=== PATIENT | female | born 1985 | race Caucasian/White ===

== ENCOUNTER → 2019-06-08 16:20 | Outpatient (CLI) | payer OTHER, SELFPAY ==
[2019-06-08 17:10] LABS: Basophils % 0.4 % (0.1-2.0); Eosinophils % 0.4 % (0.1-12.0); Hematocrit 38.9 % (37.0-47.0); Hemoglobin 12.8 g/dL (12.2-16.2); Lymphocytes # 2.9 K/mm3 (0.7-4.5); Lymphocytes % 31.3 % (10-50); Mean Corpuscular Hemoglobin 28.6 pg (27.0-31.2); Mean Corpuscular Volume 86.6 fl (81-99); Mean Platelet Volume 8.3 fl (7.4-10.4); Monocytes # 0.4 K/mm3 (0.1-1.0); Monocytes % 4.7 % (1.7-9.3); Neutrophils # 5.8 K/mm3 (1.8-7.8); Neutrophils % 63.1 % (37.0-80.0); Platelet Count 292 K/mm3 (142-424); Red Blood Count 4.49 M/mm3 (4.20-5.40); Red Cell Distribution Width 12.4 % (11.5-17.5); White Blood Count 9.2 K/mm3 (4.8-10.8)
[2019-06-08 17:19] LABS: Alanine Aminotransferase 13 U/L (12-78); Albumin/Globulin Ratio 1.3 (1.1-1.8); Alkaline Phosphatase 55 U/L (46-116); Anion Gap 15.1 mEq/L (5-15); Aspartate Amino Transferase 7 U/L (15-37); Bilirubin,Total 0.4 mg/dL (0.2-1.0); Blood Urea Nitrogen 12 mg/dL (7-18); Calcium 8.8 mg/dL (8.5-10.1); Carbon Dioxide 24 mmol/L (21.0-32.0); Chloride 102 mmol/L (98-107); Chol/HDL Ratio 2.7 (1-3.5); Cholesterol 165 mg/dL (140-200); Creatinine,Serum 0.84 mg/dL (0.55-1.02); Estimated Glomerular Filt Rate 78 ml/min (>60); GFR (African American) 94 ML/MIN (>60); Globulin 3.2 gm/dl (1.3-3.2); Glucose 83 mg/dL (74-106); HDL Cholesterol 61 mg/dL (29-89); LDL Cholesterol 85 mg/dL (0-130); Potassium 4.1 mmoL/L (3.5-5.1); Sodium 137 mmol/L (136-145); T4 (Thyroxine) 9.1 ug/dl (4.7-13.3); Thyroid Stimulating Hormone 0.96 uIU/ml (0.358-3.740); Total Protein,Serum 7.2 gm/dL (6.4-8.2); Triglycerides 96 mg/dL (30-200); VLDL Cholesterol 19 mg/dL (0-40)
[2019-06-10 18:41] LABS: Vitamin D 25 Hydroxy 51.8 ng/mL (30.0-100.0)
== END ==
PROVIDERS: Visit Provider Nurse Practitioner Family
DX: L29.9 Pruritus, unspecified (principal)
CPT/HCPCS: 80053; 80061; 82652; 84436; 84443; 85025

== ENCOUNTER 2022-04-04 11:52 | Emergency (ER) | payer OTHER, SELFPAY ==
[2022-04-04 12:22] VITALS: BP 122/74; PULSE 76; RESP 19; TEMP 37.1; O2SAT 98; BMI 24.7
--- NOTE | 2022-04-04 12:43 | HMH.EDUTC ---
[facility] [place] Clinical Impression: Laryngitis, Bronchitis Pharyngitis Qualifiers: Pharyngitis/tonsillitis etiology: unspecified etiology Qualified Code(s): J02.9 - Acute pharyngitis, unspecified Disposition: Home, Self-Care Condition on Discharge: Good Instructions: DI for Acute Bronchitis Additional Instructions: Drink plenty of fluids. Take tylenol or ibuprofen for pain or fever. Take the medications as directed. Follow up with your regular doctor. GO TO THE ER FOR ANY WORSENING SYMPTOMS Throw your tooth brush away and get a new one. Don't start the oral steroids until tomorrow, since you had the shot here today. Prescriptions: Brompheniramine/Pseudoephed/Dm [Bromfed Dm Cough Syrup] 5 ml PO Q6HP PRN #240 ml PRN Reason: Cough Transmission Status: Received by [id number] methylPREDNISolone [Medrol] 4 mg PO DIRECTED 6 Days #21 packet Transmission Status: Received by [id number] Azithromycin [Z-Beau 250mg Tab*] 250 mg PO UD DOSE PK #6 tab Transmission Status: Received by [id number] Referrals: Franco Bateman MD [Primary Care Provider] - Time of Disposition: 13:07 Medical Decision Making - Medical Records Medical records reviewed: No: I reviewed the patient's medical records. - Tony Inquiry Pt receiving controlled substance: No Vital Signs: 04/04/22 12:22 04/04/22 13:09 Temperature 98.8 F 98.8 F Temperature Source Oral Pulse Rate 76 Pulse Rate [Left Radial] 76 Respiratory Rate 19 19 Blood Pressure 122/76 Blood Pressure [Right Arm] 122/74 Blood Pressure Mean [Right Arm] 90 02 Sat by Pulse Oximetry 98 - Lab Data Lab results reviewed: Yes: I reviewed the patient's lab results. Orders (Tests/Meds): ED MEDICATIONS Discontinued Medications Generic Name Dose Route Start Last Admin Trade Name Freq PRN Reason Stop Dose Admin Dexamethasone Sodium Phosphate 8 mg 04/04/22 12:54 04/04/22 13:03 Dexamethasone 4mg/Ml 1ml Vial IM 04/04/22 12:55 8 mg ONCE ONE Administration [facility] [place] HPI - General Stated complaint: hoarseness, cough Time Seen by Provider: 04/04/22 12:43 Mode of Arrival: Ambulatory Source of Information: Patient Limitations: No Limitations Description of Symptoms (Recalled from Triage Doc. by RN): pt here with c/o laryngitis, cough, headache HEENT Symptoms (Recalled from RN notes): Yes Resp Symptoms (Recalled from RN notes): Yes Skin Symptoms (Recalled from RN notes): No MS Symptoms (Recalled from RN notes): No Functional Status (Recalled from RN notes): wnl - History of Present Illness Provider Complaint: She c/o sore throat, hoarse voice, chilling and feeling bad for the past 2 days. She denies any fever or chills. - Related Data Home Medications Medication Instructions Recorded Confirmed cetirizine 10 mg tablet 10 mg PO DAILY 10/28/20 11/03/21 Previous Rx's Medication Instructions Recorded norgestimate 0.18 mg/0.215 mg/0.25 1 tab PO Q24H #84 tab 11/03/21 mg-ethinyl estradiol 25 mcg tablet Azithromycin [Z-Beau 250mg Tab*] 250 mg PO UD DOSE PK #6 tab 04/04/22 Brompheniramine/Pseudoephed/Dm 5 ml PO Q6HP PRN #240 ml 04/04/22 [Bromfed Dm Cough Syrup] methylPREDNISolone [Medrol] 4 mg PO DIRECTED 6 Days #21 04/04/22 packet Allergies Allergy/AdvReac Type Severity Reaction Status Date / Time CODEINE Allergy Intermediate I-RASH Uncoded 11/03/21 14:21 PENICILLIN Allergy Intermediate I-HIVES Uncoded 11/03/21 14:21 SULFA (SULFONAMIDE) Allergy Intermediate I-RASH Uncoded 11/03/21 14:21 From PHENERGAN Allergy Mild NA-HALLUCIN Uncoded 11/03/21 14:21 ATIONS - Worker's Comp Is this a Worker's Comp case?: No [facility] History - Hepatitis A Screen Attestation statement:: This patient has been screened for Hepatitis A risk factors. I have reviewed the patient's past medical history: Yes Medical History: Reports:: Anxiety Other Surgeries: Yes: No Previous Surgery [facility]
[2022-04-04 13:09] VITALS: BP 122/76; PULSE 76; RESP 19; TEMP 37.1
== END 2022-04-04 13:26 | disposition home or self-care (01) ==
PROVIDERS: Emergency Provider Nurse Practitioner Family; PCP Emergency Medicine
DX: J40 Bronchitis, not specified as acute or chronic (principal); J02.9 Acute pharyngitis, unspecified; J04.0 Acute laryngitis; R53.1 Weakness; F41.9 Anxiety disorder, unspecified; Z79.52 Long term (current) use of systemic steroids; Z88.0 Allergy status to penicillin; Z88.2 Allergy status to sulfonamides; Z88.5 Allergy status to narcotic agent; Z88.8 Allergy status to other drugs, medicaments and biological substances; Z82.49 Family history of ischemic heart disease and other diseases of the circulatory system; Z83.438 Family history of other disorder of lipoprotein metabolism and other lipidemia; Z80.9 Family history of malignant neoplasm, unspecified
CPT/HCPCS: 96372; 99213; G0463

== ENCOUNTER → 2023-06-10 13:03 | Outpatient (CLI) | payer OTHER, SELFPAY ==
[2023-06-10 13:03] LABS: Basophils % 0.3 % (0.1-2.0); Eosinophils # 0.1 K/mm3 (0.0-0.4); Eosinophils % 0.7 % (0.1-12.0); Hematocrit 41.1 % (37.0-47.0); Hemoglobin 13.3 g/dL (12.2-16.2); Lymphocytes # 2.3 K/mm3 (0.7-4.5); Lymphocytes % 25.6 % (10-50); Mean Corpuscular HGB Conc 32.4 g/dL (31.8-35.4); Mean Corpuscular Hemoglobin 29.3 pg (27.0-31.2); Mean Corpuscular Volume 90.2 fl (81-99); Mean Platelet Volume 8.5 fl (7.4-10.4); Monocytes # 0.5 K/mm3 (0.1-1.0); Monocytes % 5.6 % (1.7-9.3); Neutrophils # 6.1 K/mm3 (1.8-7.8); Neutrophils % 67.7 % (37.0-80.0); Platelet Count 254 K/mm3 (142-424); Red Blood Count 4.56 M/mm3 (4.20-5.40); Red Cell Distribution Width 12.7 % (11.5-17.5)
[2023-06-10 13:17] LABS: Alanine Aminotransferase 15 U/L (12-78); Albumin Level 4.5 g/dl (3.5-5.0); Albumin/Globulin Ratio 1.7 (1.1-1.8); Alkaline Phosphatase 59 U/L (38-126); Anion Gap 13.2 mEq/L (5-15); Aspartate Amino Transferase 23 U/L (14-36); Bilirubin,Total 0.5 mg/dl (0.2-1.3); Blood Urea Nitrogen 12 mg/dl (7-17); Calcium 8.8 mg/dl (8.4-10.2); Carbon Dioxide 23 mmol/L (22.0-30.0); Chloride 108 mmol/L (98-107); Chol/HDL Ratio 2.5 (1-3.5); Cholesterol 174 mg/dl (140-200); Estimated Glomerular Filt Rate 94 ml/min (>60); GFR (African American) 114 ML/MIN (>60); Globulin 2.6 g/dL (1.3-3.2); Glucose 93 mg/dl (74-100); HDL Cholesterol 71 mg/dl (40-60); Potassium 4.2 mmoL/L (3.5-5.1); Sodium 140 mmol/L (136-145); Total Protein,Serum 7.1 g/dl (6.3-8.2); Triglycerides 119 mg/dl (30-150); VLDL Cholesterol 24 mg/dL (0-40)
[2023-06-10 13:28] LABS: Direct LDL Cholesterol 80.87 mg/dL (100-129)
[2023-06-10 13:35] LABS: 25-OH Vitamin D, Total 34.2 ng/mL (30-100)
[2023-06-10 13:48] LABS: Thyroid Stimulating Hormone 0.72 uIU/mL (0.465-4.68)
== END ==
PROVIDERS: PCP Nurse Practitioner Family; Visit Provider Nurse Practitioner Family
DX: R53.83 Other fatigue (principal); J30.2 Other seasonal allergic rhinitis; Z79.899 Other long term (current) drug therapy
CPT/HCPCS: 80053; 80061; 82306; 84443; 85025

== ENCOUNTER 2024-05-23 09:35 | Outpatient (CLI) | payer OTHER, SELFPAY ==
[2024-05-23 18:59] LABS: Basophils # 0.1 K/mm3 (0-0.2); Basophils % 0.6 % (0.1-2.0); Eosinophils # 0.1 K/mm3 (0.0-0.4); Eosinophils % 0.9 % (0.1-12.0); Hematocrit 42.7 % (37.0-47.0); Lymphocytes # 2.1 K/mm3 (0.7-4.5); Lymphocytes % 26.7 % (10-50); Mean Corpuscular HGB Conc 32.8 g/dL (31.8-35.4); Mean Corpuscular Hemoglobin 31.1 pg (27.0-31.2); Mean Corpuscular Volume 94.7 fl (81-99); Mean Platelet Volume 9.1 fl (7.4-10.4); Monocytes # 0.5 K/mm3 (0.1-1.0); Monocytes % 5.7 % (1.7-9.3); Neutrophils # 5.2 K/mm3 (1.8-7.8); Platelet Count 306 K/mm3 (142-424); Red Blood Count 4.51 M/mm3 (4.20-5.40); Red Cell Distribution Width 13.2 % (11.5-17.5); White Blood Count 7.9 K/mm3 (4.8-10.8)
[2024-05-23 19:09] LABS: Alanine Aminotransferase 19 U/L (12-78); Albumin Level 4.5 g/dl (3.5-5.0); Albumin/Globulin Ratio 1.6 (1.1-1.8); Alkaline Phosphatase 65 U/L (38-126); Anion Gap 12.3 mEq/L (5-15); Aspartate Amino Transferase 25 U/L (14-36); Bilirubin,Total 0.8 mg/dl (0.2-1.3); Blood Urea Nitrogen 11 mg/dl (7-17); Calcium 9.2 mg/dl (8.4-10.2); Carbon Dioxide 25 mmol/L (22.0-30.0); Chloride 105 mmol/L (98-107); Chol/HDL Ratio 3.4 (1-3.5); Cholesterol 219 mg/dl (140-200); Estimated Glomerular Filt Rate 112 ml/min (>60); GFR (African American) 135 ML/MIN (>60); Globulin 2.8 g/dL (1.3-3.2); Glucose 87 mg/dl (74-100); HDL Cholesterol 65 mg/dl (40-60); Potassium 4.3 mmoL/L (3.5-5.1); Sodium 138 mmol/L (136-145); Total Protein,Serum 7.3 g/dl (6.3-8.2); Triglycerides 105 mg/dl (30-150); VLDL Cholesterol 21 mg/dL (0-40)
[2024-05-23 19:21] LABS: Direct LDL Cholesterol 112.56 mg/dL (100-129)
[2024-05-23 19:30] LABS: 25-OH Vitamin D, Total 33.9 ng/mL (30-100)
== END 2024-05-23 23:59 | disposition home or self-care (01) ==
LOC: LAB.DROPOF 05-24 10:30
PROVIDERS: PCP Nurse Practitioner Family; Visit Provider Nurse Practitioner Family
DX: Z80.9 Family history of malignant neoplasm, unspecified (principal)
CPT/HCPCS: 80050; 80053; 80061; 82306; 84443; 85025

== ENCOUNTER 2024-10-01 11:32 | Emergency (ER) | payer OTHER, SELFPAY ==
--- NOTE | 2024-10-01 11:46 | EXP.UTC ---
Discharge Plan Disposition Patient Disposition: Home, Self-Care Condition: Good Prescriptions Prescriptions: New azithromycin [Zithromax] 250 mg tablet 250 mg PO UD DOSE PK Qty: 6 0RF Rx Instructions: Take two (2) tablets today, then one (1) tablet days #2 thru #5 benzonatate 100 mg capsule 100 mg PO TIDP PRN (Reason: Cough) Qty: 30 0RF methylprednisolone 4 mg Tablets,Dose Pack 4 mg PO DIRECTED 6 Days Qty: 21 0RF Rx Instructions: Take 1 pack as directed for 6 days albuterol sulfate [Ventolin HFA] 90 mcg/actuation HFA aerosol inhaler 2 puff inhalation Q6H PRN (Reason: shortness of breath or wheezing) Qty: 6.7 0RF No Action norgestimate-ethinyl estradiol 0.18/0.215/0.25 mg-25 mcg tablet 1 tab PO Q24H Qty: 84 3RF cetirizine [Zyrtec] 10 mg tablet 10 mg PO DAILY Referrals Follow up/Referrals: Marco Cook APRN [Primary Care Provider] - See instructions Activity Restrictions/Add. Instructions Additional Instructions/Restrictions: Drink plenty of fluids. Take tylenol or ibuprofen for pain or fever. Take the medications as directed. Follow up with your regular doctor. GO TO THE ER FOR ANY WORSENING SYMPTOMS Clinical Impressions Clinical Impression: Acute bronchitis, Sinusitis Stand Alone Forms Stand Alone Forms: Work/School Release Instructions Patient Instructions: Sinusitis, DI for Sinusitis Print Language Print Language: Persian Discharge ED Provider: Jamshid Payne [facility] General Stated complaint: congestion drainage wheezing cough lethargy st Time Seen by Provider: 10/01/24 11:46 Related Data Home Medications ?Medication ?Instructions ?Recorded ?Confirmed cetirizine 10 mg tablet (Zyrtec) 10 mg PO DAILY 10/28/20 10/01/24 Previous Rx's ?Medication ?Instructions ?Recorded norgestimate 0.18 mg/0.215 mg/0.25 1 tab PO Q24H control #84 11/26/23 mg-ethinyl estradiol 25 mcg tablet tabs albuterol sulfate 90 mcg/actuation 2 puff inhalation Q6H PRN 10/01/24 aerosol inhaler (Ventolin HFA) shortness of breath or wheezing #6.7 grams azithromycin 250 mg tablet 250 mg PO UD DOSE PK #6 tabs 10/01/24 (Zithromax) benzonatate 100 mg capsule 100 mg PO TIDP PRN Cough #30 caps 10/01/24 methylprednisolone 4 mg tablets in 4 mg PO DIRECTED 6 days #21 tabs 10/01/24 a dose pack Allergies Allergy/AdvReac Type Severity Reaction Status Date / Time CODEINE Allergy Intermediate I-RASH Uncoded 11/26/23 09:42 PENICILLIN Allergy Intermediate I-HIVES Uncoded 11/26/23 09:42 SULFA (SULFONAMIDE) Allergy Intermediate I-RASH Uncoded 11/26/23 09:42 From PHENERGAN Allergy Mild NA-HALLUCIN Uncoded 11/26/23 09:42 [facility] Disclaimer: The information contained in this section may have been updated after the patient was seen, as this information can be updated by other users. Medical History Family history of cancer maternal aunt diagnosed with a female caner and when she was 26 years old No significant past medical history Surgical History No significant past surgical history Family History Father Cancer pancreatic Family/Other Cancer breast & ovarian Social History Smoking Status: Never smoker alcohol intake: current alcohol intake frequency: a few times a month substance use type: denies use current occupational status: employed household members: spouse housing: house ROS Obtained: Yes All systems reviewed & no additional complaints except as documented Constitutional Constitutional: Denies chills and Denies fever(s) Eyes Eyes: Denies eye discharge ENT Ears, Nose, Mouth, and Throat: Denies dizziness, Denies otalgia and Denies sore throat Cardiovascular Cardiovascular: Denies chest pain Respiratory Respiratory: Denies shortness of breath, Reports chest congestion, Denies cough, Denies stridor and Denies wheezing Gastrointestinal Gastrointestingal: Denies nausea or vomiting Musculoskeletal Musculoskeletal: Reports system reviewed and no additional complaints, except as documented and Denies arthralgias Integumentary/Breasts Skin/Breast: Denies rash Neurologic Neurologic: Denies dizziness and Denies paresthesias Allergic/Immunologic Allergic/Immunologic: Denies wheezing Physical Exam General General appearance: alert and in no apparent distress Head Head exam: atraumatic, normocephalic and normal inspection Eye Eye exam: Present normal appearance, PERRL and EOMI ENT ENT exam: Present normal exam, normal oropharynx, mucous membranes moist, TM's normal bilaterally and normal external ear exam Neck Neck exam: Present normal inspection, full ROM and trachea midline; Absent meningismus or lymphadenopathy Chest Chest inspection: Present normal inspection and symmetric chest wall rise; Absent tenderness Respiratory Respiratory exam: Present normal lung sounds bilaterally; Absent respiratory distress Cardiovascular Cardiovascular exam: Present regular rate and normal rhythm; Absent JVD Abdominal Exam Abdominal exam: Present soft and normal bowel sounds; Absent distention, tenderness or guarding Extremities Exam Extremities exam: Present normal inspection, full ROM and normal capillary refill; Absent calf tenderness Back Exam Back exam: Present normal inspection; Absent tenderness Neurological Exam Neurological exam: Present alert and oriented X3 Psychiatric Psychiatric exam: Present normal affect and normal mood Skin Skin exam: Present warm, dry, intact and normal color Lymphatic Lymphatic Findings: no adenopathy Medical Decision Making Medical Records Medical records reviewed: No I reviewed the patient's medical records. Screening: Per USPSTF and CDC recommendations, given the prevalence of disease in our region, it is our hospital?s policy to screen for HIV and viral Hepatitis for all patients aged 18 and over and those with ongoing risk factors. Tony Inquiry Pt receiving controlled substance: No
[2024-10-01 11:55] VITALS: BP 146/83; PULSE 83; RESP 20; TEMP 37.1; O2SAT 96; BMI 25.2
[2024-10-01 12:32] VITALS: BP 146/83; PULSE 83; RESP 20; TEMP 37.1
== END 2024-10-01 12:32 | disposition home or self-care (01) ==
PROVIDERS: Emergency Provider Nurse Practitioner Family; PCP Nurse Practitioner Family
DX: J20.9 Acute bronchitis, unspecified (principal); J01.90 Acute sinusitis, unspecified; R09.81 Nasal congestion; R05.9 Cough, unspecified
CPT/HCPCS: 99212; G0381

== ENCOUNTER 2024-10-11 09:08 | Outpatient (CLI) | payer OTHER, SELFPAY ==
--- NOTE | 2024-10-11 09:12 | XR_ITS ---
FINAL REPORT CLINICAL HISTORY: Nonspecific cough, shortness of breath on exertion. FINDINGS: PA and lateral views of the chest are obtained. There is no prior exam for comparison. The cardiac and mediastinal silhouettes are within normal limits. The lungs are clear. There is no pleural effusion, pneumothorax, or acute osseous abnormality. Pectus excavatum deformity is noted. IMPRESSION: No radiographic evidence of acute cardiac or pulmonary disease. Reviewed, Interpreted and Dictated by Alyssa Snider MD Transcribed by Patti Hanson Authenticated and [facility]
== END 2024-10-11 23:59 | disposition home or self-care (01) ==
LOC: RAD 09:09
PROVIDERS: PCP Nurse Practitioner Family; Visit Provider Family Medicine
DX: J20.9 Acute bronchitis, unspecified (principal); R05.9 Cough, unspecified; R06.09 Other forms of dyspnea; R07.89 Other chest pain
CPT/HCPCS: 71046

== ENCOUNTER 2025-05-29 09:45 | Outpatient (CLI) | payer OTHER, SELFPAY ==
[2025-05-29 14:46] LABS: Hematocrit 39.7 % (37.0-47.0); Hemoglobin 13.1 g/dL (12.2-16.2); Immature Granulocytes % 0.4 %; Mean Corpuscular HGB Conc 33.0 g/dL (31.8-35.4); Mean Corpuscular Hemoglobin 29.6 pg (27.0-31.2); Mean Corpuscular Volume 89.6 fl (81-99); Nucleated Red Blood Cells % 0 %; Platelet Count 273 K/mm3 (142-424); Red Blood Count 4.43 M/mm3 (4.20-5.40); Red Cell Distribution Width-SD 40.2 fL; White Blood Count 9.3 K/mm3 (4.8-10.8)
[2025-05-29 15:31] LABS: Alanine Aminotransferase 14 U/L (12-78); Albumin Level 4.6 g/dl (3.5-5.0); Albumin/Globulin Ratio 1.8 (1.1-1.8); Alkaline Phosphatase 59 U/L (38-126); Anion Gap 19.5 mEq/L (5-15); Aspartate Amino Transferase 24 U/L (14-36); Bilirubin,Total 0.7 mg/dl (0.2-1.3); Blood Urea Nitrogen 10 mg/dl (7-17); Calcium 9.5 mg/dl (8.4-10.2); Carbon Dioxide 23 mmol/L (22.0-30.0); Chloride 99 mmol/L (98-107); Cholesterol 165 mg/dl (140-200); Creatinine,Serum 0.60 mg/dl (0.52-1.04); Estimated Glomerular Filt Rate 111 ml/min (>60); GFR (African American) 135 ML/MIN (>60); Globulin 2.6 g/dL (1.3-3.2); Glucose 88 mg/dl (74-100); HDL Cholesterol 57 mg/dl (40-60); Potassium 4.5 mmoL/L (3.5-5.1); Sodium 137 mmol/L (136-145); Total Protein,Serum 7.2 g/dl (6.3-8.2); Triglycerides 93 mg/dl (30-150)
[2025-05-29 15:45] LABS: T4 (Thyroxine) 10.6 ug/dl (5.53-11.0)
[2025-05-29 15:59] LABS: Thyroid Stimulating Hormone 1.14 uIU/mL (0.465-4.68)
== END 2025-05-29 23:59 | disposition home or self-care (01) ==
LOC: LAB.DROPOF 14:39
PROVIDERS: PCP Nurse Practitioner Family; Visit Provider Nurse Practitioner Family
DX: E78.00 Pure hypercholesterolemia, unspecified (principal); Z79.899 Other long term (current) drug therapy
CPT/HCPCS: 80053; 80061; 84436; 84443; 85025